=== PATIENT | female | born 1985 | race Caucasian/White ===

== ENCOUNTER 2016-11-20 00:16 | Emergency (ER) | payer OTHER ==
[~2016-11-20] VITALS: Ht 172.7 cm; Wt 104.3 kg
[~2016-11-20 00:16] MED LIST: ONDA4TAB10 SL
[2016-11-20 00:57] LABS: BILIRUBIN,URINE NEGATIVE (NEG); GLUCOSE,URINE NEGATIVE (NEG); NITRITE,URINE NEGATIVE (NEG); PROTEIN,URINE NEGATIVE (NEG-TRACE)
[2016-11-20 01:01] LABS: BACTERIA,URINE FEW /HPF (0-FEW); RBC,URINE TNTC /HPF (0-2); SQUAMOUS EPITHELIAL CELL,UR MOD /LPF
--- NOTE | 2016-11-20 01:05 | PHYS DOC ---
Past Medical History Past Medical History: CHF, High Cholesterol, Hypertension, Kidney Infection, Kidney Stone Additional Past Medical Histor: HPV, RIGHT LUNG LACERATION Past Surgical History: Cholecystectomy, Additional Past Surgical Histo: KIDNEY STENTS , BALLOON STENT Alcohol Use: None Drug Use: Marijuana Social History Narrative: ECSTASY Adult General Chief Complaint Chief Complaint: FLANK PAIN HPI HPI Patient is a 31 year old female who presents with complaint of right-sided flank pain. Patient states her symptoms started yesterday and have progressively worsened. Patient states that she is having hematuria and dysuria. Patient rates her pain as 10 out of 10 currently. Patient has history of kidney stones and states that her symptoms feel similar to previous episodes. Patient denies any fever or vomiting currently. Patient has not taken any medications to help with her symptoms. Patient states that she is having difficulty finding a position of comfort due to her pain. Patient denies any known exacerbating factors. Review of Systems Review of Systems Constitutional: Denies fever or chills [] Eyes: Denies change in visual acuity, redness, or eye pain [] HENT: Denies nasal congestion or sore throat [] Respiratory: Denies cough or shortness of breath [] Cardiovascular: Denies chest pain or edema [] GI: Nausea, denies abdominal pain, vomiting, bloody stools or diarrhea [] : Right flank pain, hematuria, dysuria [] Musculoskeletal: Denies back pain or joint pain [] Integument: Denies rash or skin lesions [] Neurologic: Denies headache, focal weakness or sensory changes [] Current Medications Current Medications Current Medications Medications (Trade) Dose Ordered Sig/Sg Start Time Stop Time Status Last Admin Dose Admin Famotidine (Pepcid) 20 mg 1X ONCE 11/20/16 01:30 11/20/16 01:31 DC 11/20/16 01:26 20 MG Morphine Sulfate 4 mg 4 mg PRN Q15MIN PRN 11/20/16 01:30 11/21/16 01:29 11/20/16 02:43 4 MG Ondansetron HCl (Zofran) 4 mg 1X ONCE 11/20/16 01:30 11/20/16 01:31 DC 11/20/16 01:27 4 MG Sodium Chloride (Iv Sodium Chloride 0.9% 1000ml Bag) 1,000 ml @ 1,000 mls/hr Q1H 11/20/16 01:30 11/20/16 02:29 DC 11/20/16 01:27 1,000 MLS/HR Allergies Allergies Allergies Coded Allergies Type Severity Reaction Last Updated Verified Sulfa (Sulfonamide Antibiotics) Allergy Severe Anaphylaxis 03/09/16 Yes Physical Exam Physical Exam Constitutional: Alert, afebrile, appears in moderate to severe discomfort. [] HENT: Normocephalic, atraumatic, bilateral external ears normal, oropharynx moist, no oral exudates, nose normal. [] Eyes: PERRLA, EOMI, conjunctiva normal, no discharge. [] Neck: Normal range of motion, no tenderness, supple, no stridor. [] Cardiovascular:Heart rate regular rhythm, no murmur [] Lungs & Thorax: Bilateral breath sounds clear to auscultation [] Abdomen: Bowel sounds normal, soft, no tenderness, no masses, no pulsatile masses. [] Skin: Warm, dry, no erythema, no rash. [] Back: No midline tenderness, right CVA tenderness present, no flank ecchymosis. [] Extremities: No tenderness, no cyanosis, no clubbing, ROM intact, no edema. [] Neurologic: Alert and oriented X 3, normal motor function, normal sensory function, no focal deficits noted. [] Current Patient Data Vital Signs Vital Signs Date Time Temp Pulse Resp B/P Pulse Ox O2 Delivery O2 Flow Rate FiO2 11/20/16 01:31 81 145/82 100 Room Air 11/20/16 00:55 98.1 16 98.1 Lab Values Laboratory Tests Test 11/20/16 00:40 11/20/16 00:50 Urine Collection Type Unknown Urine Color Yellow Urine Clarity Clear Urine pH 7.0 Urine Specific [place] 1.015 Urine Protein Negativemg/dL (NEG-TRACE) Urine Glucose (UA) Negativemg/dL (NEG) Urine Ketones (Stick) Tracemg/dL (NEG) Urine Blood Large (NEG) Urine Nitrite Negative (NEG) Urine Bilirubin Negative (NEG) Urine Urobilinogen Dipstick 1.0mg/dL (0.2 mg/dL) Urine Leukocyte Esterase Negative (NEG) Urine RBC Tntc/HPF (0-2) Urine WBC 1-4/HPF (0-4) Urine Squamous Epithelial Cells Mod/LPF Urine Bacteria Few/HPF (0-FEW) Urine Mucus Mod/LPF Urine Test Negative (NEG) White Blood Count 8.1x10^3/uL (4.0-11.0) Red Blood Count 4.10x10^6/uL (3.50-5.40) Hemoglobin 13.6g/dL (12.0-15.5) Hematocrit 40.4% (36.0-47.0) Mean Corpuscular Volume 99fL (79-100) Mean Corpuscular Hemoglobin 33pg (25-35) Mean Corpuscular Hemoglobin Concent 34g/dL (31-37) Red Cell Distribution Width 12.7% (11.5-14.5) Platelet Count 254x10^3/uL (140-400) Neutrophils (%) (Auto) 51% (31-73) Lymphocytes (%) (Auto) 39% (24-48) Monocytes (%) (Auto) 8% (0-9) Eosinophils (%) (Auto) 1% (0-3) Basophils (%) (Auto) 1% (0-3) Neutrophils # (Auto) 4.1x10^3uL (1.8-7.7) Lymphocytes # (Auto) 3.2x10^3/uL (1.0-4.8) Monocytes # (Auto) 0.7x10^3/uL (0.0-1.1) Eosinophils # (Auto) 0.1x10^3/uL (0.0-0.7) Basophils # (Auto) 0.1x10^3/uL (0.0-0.2) Sodium Level 142mmol/L (136-145) Potassium Level 3.3mmol/L (3.5-5.1) L Chloride Level 105mmol/L (98-107) Carbon Dioxide Level 26mmol/L (21-32) Anion Gap 11 (6-14) Blood Urea Nitrogen 6mg/dL (7-20) L Creatinine 0.6mg/dL (0.6-1.0) Estimated GFR (Cockcroft-Gault) 115.1 BUN/Creatinine Ratio 10 (6-20) Glucose Level 117mg/dL (70-99) H Calcium Level 8.7mg/dL (8.5-10.1) Total Bilirubin 0.4mg/dL (0.2-1.0) Aspartate Amino Transferase (AST) 22U/L (15-37) Alanine Aminotransferase (ALT) 41U/L (14-59) Alkaline Phosphatase 69U/L (46-116) Total Protein 7.0g/dL (6.4-8.2) Albumin 3.9g/dL (3.4-5.0) Albumin/Globulin Ratio 1.3 (1.0-1.7) Lipase 109U/L (73-393) Laboratory Tests 11/20/16 00:50 Laboratory Tests 11/20/16 00:50 EKG EKG Not performed [] Radiology/Procedures Radiology/Procedures [facility] [address] [place] [address] IMAGING REPORT Signed PATIENT: LU BRANHAM ACCOUNT: [id number] : 1985 LOCATION: ER AGE: 31 SEX: F EXAM STATUS: REG ER ORD. PHYSICIAN: JOSÉ MIGUEL GONZALEZ APRN REASON: flank pain hx of kidney stones PROCEDURE: ABDOMEN PELVIS WO CONTRAST Examination: CT of the abdomen pelvis without contrast History: History of right-sided flank pain, hematuria. COMPARISON None available. TECHNIQUE Axial CT images of the abdomen pelvis were performed without contrast. Coronal sagittal reformats were performed. Exposure: One or more of the following dose reduction technique were utilized for this examination: 1. Automated exposure control. 2.Adjustment of MA and /or KV according to patient size. 3. Use of iterative reconstruction technique. Findings: Minimal bibasilar lung atelectasis identified. No evidence of free air identified in the abdomen. The evaluation of the solid organs is limited due to lack of IV contrast. The evaluation of the bowel is limited due to lack of oral contrast. The visualized non contrasted liver, spleen, adrenals grossly appears unremarkable. Cholecystectomy clips are identified. The stomach is mildly distended. The visualized pancreas grossly appears unremarkable .The small bowel is nondilated. No evidence of inflammatory fat stranding identified in the right lower quadrant of the abdomen. Feces and gas noted in the colon. The urinary bladder is mildly distended. Multiple punctate intrarenal collecting system calculi identified in the right and left kidneys with the largest measuring 6.5 millimeters in the right kidney and 5 millimeters in the left kidney. There is a 4.5 millimeter calculus identified in the left ureterovesical junction causing mild left-sided hydronephrosis and hydroureter with minimal fat stranding about the left ureter. The urinary bladder is mildly distended . The visualized uterus, adnexa grossly appears unremarkable . The caliber of the aorta grossly appears unremarkable . Mild degenerative changes lumbar spine. IMPRESSION - 4.5 millimeter calculus identified in the at the left ureterovesical junction causing mild left-sided hydronephrosis and hydroureter. There is minimal fat stranding identified about the left ureter could be secondary to to back pressure or pyelitis. - Multiple intrarenal collecting system calculi identified in the bilateral kidneys. Electronically signed by: Gabriel Acosta (Nov 20, 2016 02:57:30) DICTATED and SIGNED BY: GABRIEL ACOSTA MD DATE: 11/20/16 025 CC: RUDY ROMEO MD; JOSÉ MIGUEL GONZALEZ APRN; UNKNOWN PCP NAME ~ [] Course & Med Decision Making Course & Med Decision Making Pertinent Labs and Imaging studies reviewed. (See chart for details) Patient was given IV fluids, morphine, and Zofran. On reevaluation, patient's symptoms have improved at this time. Patient was found to have a 4-1/2 mm stone at the left UVJ. The patient will be discharged home with referral to Dr. Lobo in one week. Patient provided with hydrocodone, Zofran, and Flomax for treatment. Advised return emergency department for any worsening symptoms. Patient voiced understanding and in agreement with treatment plan. Dragon Disclaimer Dragon Disclaimer This electronic medical record was generated, in whole or in part, using a voice recognition dictation system. Departure Departure Impression: Primary Impression: Left ureteral stone Disposition: 01 HOME, SELF-CARE Condition: IMPROVED Referrals: UNKNOWN PCP NAME (PCP) AMARI LOBO DO Patient Instructions: Ureteral Colic Additional Instructions: Follow-up Dr. Lobo in 5-7 days. Return to the emergency department for any worsening symptoms. Scripts Tamsulosin Hcl (Flomax)0.4 Mg Cap.er.24h1 Cap PO DAILY #15 CAP Ref 0 Prov:RUDY ROMEO MD 11/20/16 Ondansetron (Zofran Odt)4 Mg Tab.rapdis1 Tab SL Q8HRS PRN NAUSEA/VOMITING #15 TAB Prov:RUDY ROMEO MD 11/20/16 Hydrocodone/Apap 5-325 ([place] 5-325 Tablet)1 Each Tablet1-2 Tab PO Q4-6HRS PRN PAIN #30 TAB Prov:RUDY ROMEO MD 11/20/16 RUDY ROMEO MD Nov 20, 2016 01:05
[2016-11-20 01:12] LABS: BASO # 0.1 x10^3/uL (0.0-0.2); BASO % 1 % (0-3); EOS % 1 % (0-3); HEMATOCRIT 40.4 % (36.0-47.0); HEMOGLOBIN 13.6 g/dL (12.0-15.5); LYMPH # 3.2 x10^3/uL (1.0-4.8); LYMPH % 39 % (24-48); MEAN CORPUSCULAR HEMOGLOBIN 33 pg (25-35); MEAN CORPUSCULAR HGB CONC 34 g/dL (31-37); MEAN CORPUSCULAR VOLUME 99 fL (79-100); MONO % 8 % (0-9); NEUT % 51 % (31-73); PLATELET COUNT 254 x10^3/uL (140-400); RED CELL DISTRIBUTION WIDTH 12.7 % (11.5-14.5); WHITE BLOOD COUNT 8.1 x10^3/uL (4.0-11.0)
[2016-11-20 01:20] LABS: CALCIUM 8.7 mg/dL (8.5-10.1); CREATININE 0.6 mg/dL (0.6-1.0); GFR 115.1; POTASSIUM 3.3 mmol/L (3.5-5.1)
[2016-11-20 01:26] LABS: ALBUMIN 3.9 g/dL (3.4-5.0); ALBUMIN/GLOBULIN RATIO 1.3 (1.0-1.7); TOTAL BILIRUBIN 0.4 mg/dL (0.2-1.0)
[2016-11-20] MEDS: MORPHINE SULFATE 4 MG/ML DISP.SYRIN. IV/SQ PRN ×3 (01:27→02:43)
[2016-11-20] MEDS ORDERED: FAMOTIDINE 20 MG/2 ML VIAL IVP ONE (01:30)
[2016-11-20] MEDS ORDERED: IV NORMAL SALINE 1000ML BAG 1,000 ML IV SCH (01:30)
[2016-11-20] MEDS ORDERED: ONDANSETRON PF 4 MG/2 ML VIAL. IV ONE (01:30)
[2016-11-20 02:18] LABS: NEG OBC UR NEG; POS OBC UR POS
--- NOTE | 2016-11-20 02:58 | RAD ---
Examination: CT of the abdomen pelvis without contrast History: History of right-sided flank pain, hematuria. COMPARISON None available. TECHNIQUE Axial CT images of the abdomen pelvis were performed without contrast. Coronal sagittal reformats were performed. Exposure: One or more of the following dose reduction technique were utilized for this examination: 1. Automated exposure control. 2.Adjustment of MA and /or KV according to patient size. 3. Use of iterative reconstruction technique. Findings: Minimal bibasilar lung atelectasis identified. No evidence of free air identified in the abdomen. The evaluation of the solid organs is limited due to lack of IV contrast. The evaluation of the bowel is limited due to lack of oral contrast. The visualized non contrasted liver, spleen, adrenals grossly appears unremarkable. Cholecystectomy clips are identified. The stomach is mildly distended. The visualized pancreas grossly appears unremarkable .The small bowel is nondilated. No evidence of inflammatory fat stranding identified in the right lower quadrant of the abdomen. Feces and gas noted in the colon. The urinary bladder is mildly distended. Multiple punctate intrarenal collecting system calculi identified in the right and left kidneys with the largest measuring 6.5 millimeters in the right kidney and 5 millimeters in the left kidney. There is a 4.5 millimeter calculus identified in the left ureterovesical junction causing mild left-sided hydronephrosis and hydroureter with minimal fat stranding about the left ureter. The urinary bladder is mildly distended . The visualized uterus, adnexa grossly appears unremarkable . The caliber of the aorta grossly appears unremarkable . Mild degenerative changes lumbar spine. IMPRESSION - 4.5 millimeter calculus identified in the at the left ureterovesical junction causing mild left-sided hydronephrosis and hydroureter. There is minimal fat stranding identified about the left ureter could be secondary to to back pressure or pyelitis. - Multiple intrarenal collecting system calculi identified in the bilateral kidneys. Electronically signed by: Gabriel Acosta (Nov 20, 2016 02:57:30)
[2016-11-20 03:00] VITALS: BP 129/69
[2016-11-20] MEDS ORDERED: HYDR-971 PO (03:19)
[2016-11-20] MEDS ORDERED: TAMS0.4C97 PO (03:19)
[2016-11-20] MEDS ORDERED: ONDA4TAB10 SL (03:19)
== END 2016-11-20 03:31 | disposition home or self-care (01) ==
LOC: ER 00:16
DX: N20.1 Calculus of ureter (principal); I11.0 Hypertensive heart disease with heart failure; I50.9 Heart failure, unspecified; E78.00 Pure hypercholesterolemia, unspecified; F12.10 Cannabis abuse, uncomplicated; Z88.2 Allergy status to sulfonamides; Z96.0 Presence of urogenital implants
CPT/HCPCS: 36415; 74176; 80053; 81001; 81025; 83690; 85027; 96361; 96374; 96375; 96376; 99285; J2270; J2405; J7030; S0028

== ENCOUNTER 2016-12-12 02:16 | Emergency (ER) | payer OTHER ==
[~2016-12-12] VITALS: Ht 170.2 cm; Wt 99.8 kg
[~2016-12-12 02:16] MED LIST changes: +HYDR-971 PO; +TAMS0.4C97 PO
--- NOTE | 2016-12-12 03:29 | PHYS DOC ---
Past Medical History Past Medical History: CHF, High Cholesterol, Hypertension, Kidney Infection, Kidney Stone Additional Past Medical Histor: HPV, RIGHT LUNG LACERATION Past Surgical History: Cholecystectomy, Additional Past Surgical Histo: KIDNEY STENTS , BALLOON STENT Alcohol Use: None Drug Use: Marijuana Adult General Chief Complaint Chief Complaint: FLANK PAIN HPI HPI Patient is a 31 year old female who presents with complaint of left-sided flank pain. Patient states her symptoms started up earlier this morning and have persistently worsened. The patient was recently seen in the emergency department on November 20, 2016 and diagnosed with a left distal ureteral stone. Patient states that she followed up with urology and had lithotripsy done. Patient states that she noticed the stone passed approximately 3 days ago and states that she initially felt better, however over the past day she started feeling worsening colicky pain along the left side. Patient rates her pain as 10 out of 10. Patient has had associated nausea but no vomiting. Patient denies fevers. Patient has not taken any medications to help with symptoms. Review of Systems Review of Systems Constitutional: Denies fever or chills [] Eyes: Denies change in visual acuity, redness, or eye pain [] HENT: Denies nasal congestion or sore throat [] Respiratory: Denies cough or shortness of breath [] Cardiovascular: Denies chest pain or edema [] GI: Nausea, denies abdominal pain, vomiting, bloody stools or diarrhea [] : Left flank pain, denies dysuria or hematuria [] Musculoskeletal: Denies back pain or joint pain [] Integument: Denies rash or skin lesions [] Neurologic: Denies headache, focal weakness or sensory changes [] Current Medications Current Medications Current Medications Medications (Trade) Dose Ordered Sig/Sg Start Time Stop Time Status Last Admin Dose Admin Ketorolac Tromethamine (Toradol) 30 mg 1X ONCE 12/12/16 04:00 12/12/16 04:01 DC 12/12/16 03:41 30 MG Morphine Sulfate 4 mg 4 mg PRN Q15MIN PRN 12/12/16 03:30 12/13/16 03:29 12/12/16 04:47 4 MG Ondansetron HCl (Zofran) 4 mg 1X ONCE 12/12/16 04:00 12/12/16 04:01 DC 12/12/16 03:41 4 MG Sodium Chloride (Iv Sodium Chloride 0.9% 1000ml Bag) 1,000 ml @ 1,000 mls/hr Q1H 12/12/16 04:00 12/12/16 04:59 DC 12/12/16 03:37 1,000 MLS/HR Allergies Allergies Allergies Coded Allergies Type Severity Reaction Last Updated Verified Sulfa (Sulfonamide Antibiotics) Allergy Severe Anaphylaxis 03/09/16 Yes Physical Exam Physical Exam Constitutional: Alert, afebrile, appears in moderate discomfort. [] HENT: Normocephalic, atraumatic, bilateral external ears normal, oropharynx moist, no oral exudates, nose normal. [] Eyes: PERRLA, EOMI, conjunctiva normal, no discharge. [] Neck: Normal range of motion, no tenderness, supple, no stridor. [] Cardiovascular:Heart rate regular rhythm, no murmur [] Lungs & Thorax: Bilateral breath sounds clear to auscultation [] Abdomen: Bowel sounds normal, soft, no tenderness, no masses, no pulsatile masses. [] Skin: Warm, dry, no erythema, no rash. [] Back: No tenderness, no CVA tenderness. [] Extremities: No tenderness, no cyanosis, no clubbing, ROM intact, no edema. [] Neurologic: Alert and oriented X 3, normal motor function, normal sensory function, no focal deficits noted. [] Current Patient Data Vital Signs Vital Signs Date Time Temp Pulse Resp B/P Pulse Ox O2 Delivery O2 Flow Rate FiO2 12/12/16 04:47 16 Room Air 12/12/16 02:34 98.3 113 148/84 96 98.3 Lab Values Laboratory Tests Test 12/12/16 01:42 12/12/16 02:20 12/12/16 02:33 POC Urine HCG, Qualitative Hcg negative (Negative) Urine Collection Type Unknown Urine Color Yellow Urine Clarity Clear Urine pH 6.0 Urine Specific [place] 1.020 Urine Protein Negativemg/dL (NEG-TRACE) Urine Glucose (UA) Negativemg/dL (NEG) Urine Ketones (Stick) Negativemg/dL (NEG) Urine Blood Negative (NEG) Urine Nitrite Negative (NEG) Urine Bilirubin Negative (NEG) Urine Urobilinogen Dipstick 0.2mg/dL (0.2 mg/dL) Urine Leukocyte Esterase Small (NEG) Urine RBC Occ/HPF (0-2) Urine WBC 11-20/HPF (0-4) Urine Squamous Epithelial Cells Few/LPF Urine Bacteria Few/HPF (0-FEW) Urine Mucus Mod/LPF White Blood Count 10.5x10^3/uL (4.0-11.0) Red Blood Count 4.23x10^6/uL (3.50-5.40) Hemoglobin 14.0g/dL (12.0-15.5) Hematocrit 41.9% (36.0-47.0) Mean Corpuscular Volume 99fL (79-100) Mean Corpuscular Hemoglobin 33pg (25-35) Mean Corpuscular Hemoglobin Concent 33g/dL (31-37) Red Cell Distribution Width 12.7% (11.5-14.5) Platelet Count 292x10^3/uL (140-400) Neutrophils (%) (Auto) 57% (31-73) Lymphocytes (%) (Auto) 34% (24-48) Monocytes (%) (Auto) 7% (0-9) Eosinophils (%) (Auto) 2% (0-3) Basophils (%) (Auto) 1% (0-3) Neutrophils # (Auto) 6.0x10^3uL (1.8-7.7) Lymphocytes # (Auto) 3.6x10^3/uL (1.0-4.8) Monocytes # (Auto) 0.7x10^3/uL (0.0-1.1) Eosinophils # (Auto) 0.2x10^3/uL (0.0-0.7) Basophils # (Auto) 0.0x10^3/uL (0.0-0.2) Sodium Level 140mmol/L (136-145) Potassium Level 4.8mmol/L (3.5-5.1) Chloride Level 105mmol/L (98-107) Carbon Dioxide Level 24mmol/L (21-32) Anion Gap 11 (6-14) Blood Urea Nitrogen 13mg/dL (7-20) Creatinine 0.6mg/dL (0.6-1.0) Estimated GFR (Cockcroft-Gault) 115.1 Glucose Level 107mg/dL (70-99) H Calcium Level 9.0mg/dL (8.5-10.1) Laboratory Tests 12/12/16 02:33 Laboratory Tests 12/12/16 02:33 EKG EKG Not performed [] Radiology/Procedures Radiology/Procedures [facility] [address] [address] IMAGING REPORT Signed PATIENT: LU BRANHAM ACCOUNT: [id number] : 1985 LOCATION: ER AGE: 31 SEX: F EXAM STATUS: REG ER ORD. PHYSICIAN: RUDY ROMEO MD REASON: left flank pain, history kidney stones PROCEDURE: RENAL COMPLETE LEFT Ultrasound renal left Indication: Left flank pain. The left kidney measures 13.4 x 5.5 x 5.4 centimeters. The cortical thickness and echogenicity is normal. There are small echogenic foci within the left kidney suggestive of nonobstructing calculi. The renal pelvis is mildly prominent but no hydronephrosis is seen. The ureter is not well visualized. The bladder is decompressed. Impression: Nonobstructing left renal calculi. No significant hydronephrosis is seen. There is mild pelviectasis. Electronically signed by: Power Leon MD (Dec 12, 2016 04:18:36) DICTATED and SIGNED BY: POWER LEON MD DATE: 12/12/16417 CC: RUDY ROMEO MD; UNKNOWN PCP NAME ~ [] Course & Med Decision Making Course & Med Decision Making Pertinent Labs and Imaging studies reviewed. (See chart for details) Patient given morphine, Zofran, and Toradol in the emergency department. On reevaluation, patient's symptoms have improved. Patient's ultrasound does not show any signs of hydronephrosis and patient's UA shows findings consistent with possible urinary tract infection. The patient will be discharged with prescriptions for Keflex, [place], Flomax, and Zofran for treatment of patient's flank pain. This may be due to possible retained stone versus a calculus ureteral colic. Advise follow-up with patient's urologist in the next 3-5 days and return to emergency department for any worsening symptoms. Patient voiced understanding and in agreement with treatment plan. Dragon Disclaimer Dragon Disclaimer This electronic medical record was generated, in whole or in part, using a voice recognition dictation system. Departure Departure Impression: Primary Impression: Left flank pain Disposition: 01 HOME, SELF-CARE Condition: IMPROVED Referrals: UNKNOWN PCP NAME (PCP) Patient Instructions: Flank Pain Additional Instructions: Follow-up with your urologist in the next 3-5 days. Return to the emergency department for any worsening symptoms. Scripts Ondansetron (Zofran Odt)4 Mg Tab.rapdis1 Tab SL Q8HRS PRN NAUSEA/VOMITING #15 TAB Prov:RUDY ROMEO MD 12/12/16 Tamsulosin Hcl (Flomax)0.4 Mg Cap.er.24h1 Cap PO DAILY #15 CAP Ref 0 Prov:RUDY ROMEO MD 12/12/16 Hydrocodone/Apap 5-325 ([place] 5-325 Tablet)1 Each Tablet1-2 Tab PO Q4-6HRS PRN PAIN #20 TAB Prov:RUDY ROMEO MD 12/12/16 Cephalexin (Keflex)500 Mg Capsule1 Cap PO BID #14 CAP Prov:RUDY ROMEO MD 12/12/16 RUDY ROMEO MD Dec 12, 2016 03:29
[2016-12-12] MEDS: MORPHINE SULFATE 4 MG/ML DISP.SYRIN. IV/SQ PRN ×3 (03:41→05:23)
[2016-12-12] MEDS ORDERED: IV NORMAL SALINE 1000ML BAG 1,000 ML IV SCH (04:00)
[2016-12-12] MEDS ORDERED: ONDANSETRON PF 4 MG/2 ML VIAL. IV ONE (04:00)
[2016-12-12] MEDS ORDERED: KETOROLAC TROMETHAMINE 30 MG/ML INJ. IV ONE (04:00)
--- NOTE | 2016-12-12 04:19 | RAD ---
Ultrasound renal left Indication: Left flank pain. The left kidney measures 13.4 x 5.5 x 5.4 centimeters. The cortical thickness and echogenicity is normal. There are small echogenic foci within the left kidney suggestive of nonobstructing calculi. The renal pelvis is mildly prominent but no hydronephrosis is seen. The ureter is not well visualized. The bladder is decompressed. Impression: Nonobstructing left renal calculi. No significant hydronephrosis is seen. There is mild pelviectasis. Electronically signed by: Power Kincaid MD (Dec 12, 2016 04:18:36)
[2016-12-12 04:23] LABS: BASO % 1 % (0-3); EOS % 2 % (0-3); HEMATOCRIT 41.9 % (36.0-47.0); LYMPH # 3.6 x10^3/uL (1.0-4.8); LYMPH % 34 % (24-48); MEAN CORPUSCULAR HEMOGLOBIN 33 pg (25-35); MEAN CORPUSCULAR HGB CONC 33 g/dL (31-37); MEAN CORPUSCULAR VOLUME 99 fL (79-100); MONO % 7 % (0-9); NEUT % 57 % (31-73); PLATELET COUNT 292 x10^3/uL (140-400); RED BLOOD COUNT 4.23 x10^6/uL (3.50-5.40); RED CELL DISTRIBUTION WIDTH 12.7 % (11.5-14.5); WHITE BLOOD COUNT 10.5 x10^3/uL (4.0-11.0)
[2016-12-12 04:24] LABS: BILIRUBIN,URINE NEGATIVE (NEG); GLUCOSE,URINE NEGATIVE (NEG); NITRITE,URINE NEGATIVE (NEG); PROTEIN,URINE NEGATIVE (NEG-TRACE); UROBILINOGEN,URINE 0.2 mg/dL (0.2 mg/dL)
[2016-12-12 04:34] LABS: CREATININE 0.6 mg/dL (0.6-1.0); GFR 115.1; POTASSIUM 4.8 mmol/L (3.5-5.1)
[2016-12-12 04:36] LABS: BACTERIA,URINE FEW /HPF (0-FEW); RBC,URINE OCC /HPF (0-2); SQUAMOUS EPITHELIAL CELL,UR FEW /LPF
[2016-12-12] MEDS ORDERED: TAMS0.4C97 PO (05:26)
[2016-12-12] MEDS ORDERED: ONDA4TAB10 SL (05:26)
[2016-12-12] MEDS ORDERED: HYDR-971 PO (05:26)
[2016-12-12] MEDS ORDERED: CEPH-264 PO (05:26)
[2016-12-12 05:27] VITALS: BP 127/79
== END 2016-12-12 05:36 | disposition home or self-care (01) ==
LOC: ER 02:17
DX: R10.9 Unspecified abdominal pain (principal); R11.0 Nausea; I11.0 Hypertensive heart disease with heart failure; I50.9 Heart failure, unspecified; F12.10 Cannabis abuse, uncomplicated; E78.00 Pure hypercholesterolemia, unspecified; Z87.442 Personal history of urinary calculi; Z88.2 Allergy status to sulfonamides
CPT/HCPCS: 36415; 76775; 80048; 81001; 81025; 85027; 87086; 96361; 96374; 96375; 96376; 99285; J1885; J2270; J2405; J7030

== ENCOUNTER 2017-05-27 19:58 | Emergency (ER) | payer OTHER ==
[~2017-05-27] VITALS: Ht 172.7 cm; Wt 70.8 kg
[~2017-05-27 19:58] MED LIST changes: +CEPH-264 PO
[2017-05-27 20:15] VITALS: BP 127/60
[2017-05-27] MEDS ORDERED: DICL50TA4 PO (20:52)
--- NOTE | 2017-05-27 20:53 | PHYS DOC ---
Past Medical History Past Medical History: Cancer, CHF, High Cholesterol, Hypertension, Kidney Infection, Kidney Stone Additional Past Medical Histor: HPV, RIGHT LUNG LACERATION, CERVICAL CA Past Surgical History: Cholecystectomy, , Tubal ligation Additional Past Surgical Histo: KIDNEY STENTS , BALLOON STENT Alcohol Use: None Drug Use: Marijuana Adult General Chief Complaint Chief Complaint: DENTAL PROBLEM HPI HPI Patient is a 32 year old female with a history of kidney stones, hypertension, who presents today with moderate left upper gum dental pain from a dental fracture she's had for years. Patient states the tooth officially broke today. She states she was just got released from [facility] and just finished clindamycin a couple days ago. Review of Systems Review of Systems Constitutional: Denies fever or chills [] Eyes: Denies change in visual acuity, redness, or eye pain [] HENT: moderate left upper gum dental pain Musculoskeletal: Denies back pain or joint pain [] Integument: Denies rash or skin lesions [] Neurologic: Denies headache, focal weakness or sensory changes [] Allergies Allergies Allergies Coded Allergies Type Severity Reaction Last Updated Verified Sulfa (Sulfonamide Antibiotics) Allergy Severe Anaphylaxis 05/27/17 Yes Physical Exam Physical Exam Constitutional: Well developed, well nourished, no acute distress, non-toxic appearance. [] HENT: Normocephalic, atraumatic, bilateral external ears normal, oropharynx moist, no oral exudates, nose normal. [] Left upper molar appears decayed and broken. Patient is missing multiple teeth. Skin: Warm, dry, no erythema, no rash. [] Back: No tenderness, no CVA tenderness. [] Extremities: No tenderness, no cyanosis, no clubbing, ROM intact, no edema. [] Neurologic: Alert and oriented X 3, normal motor function, normal sensory function, no focal deficits noted. [] Psychologic: Affect normal, judgement normal, mood normal. [] Current Patient Data Vital Signs Vital Signs Date Time Temp Pulse Resp B/P (MAP) Pulse Ox O2 Delivery O2 Flow Rate FiO2 05/27/17 20:15 98.0 115 16 98 Room Air 98.0 EKG EKG [] Radiology/Procedures Radiology/Procedures [] Course & Med Decision Making Course & Med Decision Making Pertinent Labs and Imaging studies reviewed. (See chart for details) Patient is in the ED with chronic dental pain she has dental carries and decay. She just finished clindamycin 2 days ago. She is from the [place] [facility]. Discharged with diclofenac. Instructed her to follow-up with a dentist as soon as she can. Apolinar Disclaimer Apolinar Disclaimer This electronic medical record was generated, in whole or in part, using a voice recognition dictation system. Departure Departure Impression: Primary Impression: Dentalgia Additional Impression: Dental caries Disposition: HOME, SELF-CARE Condition: STABLE Referrals: NO PCP (PCP) follow up with your dentist as soon as you can Patient Instructions: Dental Caries Additional Instructions: You were seen for dental pain from a chronic broken tooth. Take the prescribed medicines as needed for pain. Follow-up with your dentist as soon as you can. Scripts Diclofenac Sodium (DICLOFENAC SODIUM) 50 Mg Tablet.dr 1 TAB PO BID, #20 TAB 0 Refills Prov: JOSÉ MIGUEL GONZALEZ APRN 05/27/17 Problem Qualifiers JOSÉ MIGUEL GONZALEZ APRN May 27, 2017 20:53
== END 2017-05-27 20:54 | disposition home or self-care (01) ==
LOC: ER 19:58
DX: K02.9 Dental caries, unspecified (principal); I11.0 Hypertensive heart disease with heart failure; I50.9 Heart failure, unspecified; E78.5 Hyperlipidemia, unspecified; Z87.442 Personal history of urinary calculi; Z90.49 Acquired absence of other specified parts of digestive tract; Z98.51 Tubal ligation status; Z88.1 Allergy status to other antibiotic agents
CPT/HCPCS: 99283

== ENCOUNTER 2017-05-30 20:56 | Emergency (ER) | payer OTHER ==
[~2017-05-30] VITALS: Ht 172.7 cm; Wt 68.9 kg
[~2017-05-30 20:56] MED LIST changes: +DICL50TA4 PO
[2017-05-30 21:23] LABS: BASO # 0.1 x10^3/uL (0.0-0.2); BASO % 1 % (0-3); EOS % 4 % (0-3); HEMATOCRIT 38.4 % (36.0-47.0); HEMOGLOBIN 13.2 g/dL (12.0-15.5); LYMPH # 3.2 x10^3/uL (1.0-4.8); LYMPH % 35 % (24-48); MEAN CORPUSCULAR HEMOGLOBIN 34 pg (25-35); MEAN CORPUSCULAR HGB CONC 34 g/dL (31-37); MEAN CORPUSCULAR VOLUME 100 fL (79-100); MONO % 8 % (0-9); NEUT % 53 % (31-73); PLATELET COUNT 295 x10^3/uL (140-400); RED BLOOD COUNT 3.84 x10^6/uL (3.50-5.40); RED CELL DISTRIBUTION WIDTH 13.5 % (11.5-14.5); WHITE BLOOD COUNT 9.1 x10^3/uL (4.0-11.0)
[2017-05-30 21:28] LABS: NEG OBC UR NEG; POS OBC UR POS
[2017-05-30 21:38] LABS: CALCIUM 9.1 mg/dL (8.5-10.1); CREATININE 0.6 mg/dL (0.6-1.0); GFR 114.4; POTASSIUM 3.9 mmol/L (3.5-5.1)
[2017-05-30] MEDS ORDERED: ACETAMINOPHEN 500 MG TABLET PO ONE (21:45)
[2017-05-30] MEDS ORDERED: IV NORMAL SALINE 1000ML BAG 1,000 ML IV ONE (21:45)
--- NOTE | 2017-05-30 21:55 | PHYS DOC ---
Past Medical History Past Medical History: Cancer, CHF, High Cholesterol, Hypertension, Kidney Infection, Kidney Stone Additional Past Medical Histor: HPV, RIGHT LUNG LACERATION, CERVICAL CA Past Medical History Hemorrhoids, skin tags at the rectum Past Surgical History: Cholecystectomy, , Tubal ligation Additional Past Surgical Histo: KIDNEY STENTS , BALLOON STENT, cardiac cath Alcohol Use: None Drug Use: Marijuana, Methamphetamine Adult General Chief Complaint Chief Complaint: DIZZY/LIGHT HEADED HPI HPI Patient is a 32 year old female presents with complaint of dizziness and lightheadedness as well as rectal bleeding after using meth. The patient does skin popping she didn't have right upper extremity. Presently patient complains of fall diffuse body aches. Review of Systems Review of Systems Constitutional: Denies fever or chills [] Eyes: Denies change in visual acuity, redness, or eye pain [] HENT: Denies nasal congestion or sore throat [] Respiratory: Denies cough or shortness of breath [] Cardiovascular: No chest pain GI: Denies abdominal pain, nausea, vomiting, or diarrhea . Yes to blood per rectum : Denies dysuria or hematuria [] Musculoskeletal: Denies back pain or joint pain. Yesterday diffuse muscle aches Integument: Denies rash or skin lesions [] Neurologic: Denies headache, focal weakness or sensory changes [] Current Medications Current Medications Current Medications Medications (Trade) Dose Ordered Sig/Sg Start Time Stop Time Status Last Admin Dose Admin Acetaminophen (Tylenol) 500 mg 1X ONCE 05/30/17 21:45 05/30/17 21:46 DC Sodium Chloride 1,000 ml @ 1,000 mls/hr 1X ONCE 05/30/17 21:45 05/30/17 22:44 DC 05/30/17 21:18 1,000 MLS/HR Allergies Allergies Allergies Coded Allergies Type Severity Reaction Last Updated Verified Sulfa (Sulfonamide Antibiotics) Allergy Severe Anaphylaxis 05/27/17 Yes Physical Exam Physical Exam Constitutional: Well developed, well nourished, no acute distress, non-toxic appearance. [] HENT: Normocephalic, atraumatic, bilateral external ears normal, oropharynx dry , no oral exudates, nose normal. [] Eyes: EOMI, conjunctiva normal, no discharge. [] Neck: Normal range of motion, no tenderness, supple, no stridor. No LAD, no meningeal signs no JVD Cardiovascular: Tachycardia, equal pulses, normal perfusion Lungs & Thorax: Bilateral breath sounds clear to auscultation, no tachypnea Abdomen: Bowel sounds normal, soft, no tenderness, no masses, no pulsatile masses. Rectal exam with normal tone, pinkish with brown stool, skin tags present. Skin: Warm, dry, no erythema, no rash. Areas of of injection in the skin in the right upper extremity in the antecubital area and the dorsum of the right hand did not show signs of infection Back: No tenderness, no CVA tenderness. [] Extremities: No tenderness, no cyanosis, no DVT, ROM intact, no edema. [] Neurologic: Alert and oriented X 3, normal motor function, normal sensory function, no focal deficits noted. [] Psychologic: Affect normal, judgement normal, chest. [] Current Patient Data Vital Signs Vital Signs Date Time Temp Pulse Resp B/P (MAP) Pulse Ox O2 Delivery O2 Flow Rate FiO2 05/30/17 22:30 92 18 114/71 (85) 99 Room Air 05/30/17 21:07 97.7 97.7 Lab Values Laboratory Tests Test 05/30/17 20:45 05/30/17 21:10 Urine Test Negative (NEG) White Blood Count 9.1 x10^3/uL (4.0-11.0) Red Blood Count 3.84 x10^6/uL (3.50-5.40) Hemoglobin 13.2 g/dL (12.0-15.5) Hematocrit 38.4 % (36.0-47.0) Mean Corpuscular Volume 100 fL (79-100) Mean Corpuscular Hemoglobin 34 pg (25-35) Mean Corpuscular Hemoglobin Concent 34 g/dL (31-37) Red Cell Distribution Width 13.5 % (11.5-14.5) Platelet Count 295 x10^3/uL (140-400) Neutrophils (%) (Auto) 53 % (31-73) Lymphocytes (%) (Auto) 35 % (24-48) Monocytes (%) (Auto) 8 % (0-9) Eosinophils (%) (Auto) 4 % (0-3) H Basophils (%) (Auto) 1 % (0-3) Neutrophils # (Auto) 4.8 x10^3uL (1.8-7.7) Lymphocytes # (Auto) 3.2 x10^3/uL (1.0-4.8) Monocytes # (Auto) 0.7 x10^3/uL (0.0-1.1) Eosinophils # (Auto) 0.3 x10^3/uL (0.0-0.7) Basophils # (Auto) 0.1 x10^3/uL (0.0-0.2) Sodium Level 144 mmol/L (136-145) Potassium Level 3.9 mmol/L (3.5-5.1) Chloride Level 107 mmol/L (98-107) Carbon Dioxide Level 31 mmol/L (21-32) Anion Gap 6 (6-14) Blood Urea Nitrogen 13 mg/dL (7-20) Creatinine 0.6 mg/dL (0.6-1.0) Estimated GFR (Cockcroft-Gault) 114.4 Glucose Level 84 mg/dL (70-99) Calcium Level 9.1 mg/dL (8.5-10.1) Creatine Kinase 48 U/L (26-192) Troponin I Quantitative < 0.017 ng/mL (0.000-0.055) Laboratory Tests 05/30/17 21:10 Laboratory Tests 05/30/17 21:10 EKG EKG 2107 sinus tachycardia, 109, no STEMI[] Radiology/Procedures Radiology/Procedures [] Course & Med Decision Making Course & Med Decision Making Pertinent Labs and Imaging studies reviewed. (See chart for details) 2330 patient in no distress, patient agrees to follow-up as directed. [] Dragon Disclaimer Dragon Disclaimer This electronic medical record was generated, in whole or in part, using a voice recognition dictation system. Departure Departure Impression: Primary Impression: Drug abuse Additional Impressions: Dehydration Rectal bleeding Disposition: HOME, SELF-CARE Condition: STABLE Referrals: UNKNOWN PCP NAME (PCP) Please follow-up with your doctor for recheck and reevaluation in 2 days (or one of the clinics in the list provided to you), please discuss this ED visit. Have your doctor recheck the rectal exam and discussed the possible need for referral to specialist. Please do not use drugs Patient Instructions: Alcohol and Drug Addiction, Finding Treatment, Dehydration, Adult, Glow-up-Cbld, Drug Abuse, FAQs, Rectal Bleeding, Easy-to- Read Scripts Tramadol Hcl/Acetaminophen (ULTRACET TABLET) 1 Each Tablet 1 TAB PO TID, #7 TAB Prov: Antony MYERS MD 05/30/17 Problem Qualifiers Antony MYERS MD May 30, 2017 21:55
--- NOTE | 2017-05-30 23:26 | RAD ---
Exam performed: CT scan of the abdomen and pelvis without contrast. Clinical Indication: Lower abdominal pain and blood in stool for 2 days. Date of Service: 05/30/2017 . Comparison: None available Technique: Contiguous helical acquisitions are obtained through the abdomen and pelvis without oral or IV contrast. Sagittal and coronal reformatted images are obtained and reviewed. CT abdomen findings: The lung bases are essentially clear. The visualized heart is normal. Lack of IV contrast limits evaluation of abdominal viscera, however the liver, spleen, pancreas appear normal. Cholecystectomy Both adrenal glands and bilateral kidneys are normal in size. Nonobstructing bilateral renal calculi are identified. There is no hydronephrosis or perinephric stranding. Aorta is normal in caliber. No retroperitoneal or mesenteric lymphadenopathy. Small and large bowel loops are nondilated and unremarkable. CT pelvis findings: The pelvic bowel loops are nondilated and unremarkable. The urinary bladder is partially decompressed. The uterus is normal. No adnexal masses. No fluid collections or pelvic lymphadenopathy. Bones are unremarkable. Impression: Nonobstructing bilateral renal calculi. No acute abnormality noted. PQRS Compliance Statement: One or more of the following individualized dose reduction techniques were utilized for this examination: 1. Automated exposure control 2. Adjustment of the mA and/or kV according to patient size 3. Use of iterative reconstruction technique Electronically signed by: Savannah Matson MD (05/30/2017 11:23 PM) [facility]
[2017-05-30] MEDS ORDERED: TRAM1TAB56 PO (23:34)
[2017-05-31] VITALS: BP 114/69
--- NOTE | 2017-05-31 06:29 | EKG ---
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
== END 2017-05-31 00:20 | disposition home or self-care (01) ==
LOC: ER 20:56
DX: F19.10 Other psychoactive substance abuse, uncomplicated (principal); K62.5 Hemorrhage of anus and rectum; E86.0 Dehydration; I11.0 Hypertensive heart disease with heart failure; I50.9 Heart failure, unspecified; E78.00 Pure hypercholesterolemia, unspecified; Z90.49 Acquired absence of other specified parts of digestive tract; Z98.51 Tubal ligation status
CPT/HCPCS: 36415; 74176; 80048; 81025; 82550; 84484; 85025; 93005; 96360; 96361; 99285; J7030

== ENCOUNTER 2017-07-14 13:45 | Emergency (ER) | payer OTHER ==
[~2017-07-14] VITALS: Ht 170.2 cm; Wt 68.9 kg
[~2017-07-14 13:45] MED LIST changes: +TRAM1TAB56 PO
[2017-07-14 15:27] LABS: BASO % 1 % (0-3); EOS % 3 % (0-3); HEMATOCRIT 40.2 % (36.0-47.0); HEMOGLOBIN 13.6 g/dL (12.0-15.5); LYMPH # 2.4 x10^3/uL (1.0-4.8); LYMPH % 31 % (24-48); MEAN CORPUSCULAR HEMOGLOBIN 34 pg (25-35); MEAN CORPUSCULAR HGB CONC 34 g/dL (31-37); MEAN CORPUSCULAR VOLUME 100 fL (79-100); MONO % 6 % (0-9); NEUT % 60 % (31-73); PLATELET COUNT 297 x10^3/uL (140-400); RED BLOOD COUNT 4.03 x10^6/uL (3.50-5.40); WHITE BLOOD COUNT 7.8 x10^3/uL (4.0-11.0)
[2017-07-14 15:30] LABS: BILIRUBIN,URINE NEGATIVE (NEG); GLUCOSE,URINE NEGATIVE (NEG); NITRITE,URINE NEGATIVE (NEG); PH,URINE 6.5; PROTEIN,URINE NEGATIVE (NEG-TRACE); UROBILINOGEN,URINE 0.2 mg/dL (0.2 mg/dL)
[2017-07-14] MEDS ORDERED: IV NORMAL SALINE 1000ML BAG 1,000 ML IV ONE (15:30)
[2017-07-14 15:37] LABS: BACTERIA,URINE MANY /HPF (0-FEW); SQUAMOUS EPITHELIAL CELL,UR MANY /LPF
[2017-07-14 15:38] LABS: CALCIUM 8.7 mg/dL (8.5-10.1); CREATININE 0.6 mg/dL (0.6-1.0); GFR 114.4; POTASSIUM 3.9 mmol/L (3.5-5.1)
[2017-07-14] MEDS ORDERED: ONDANSETRON PF 4 MG/2 ML VIAL. IV ONE (15:45)
[2017-07-14] MEDS ORDERED: fentaNYL PF VIAL 100 MCG/2 ML VIAL IV ONE (15:45)
[2017-07-14 15:46] LABS: ALBUMIN 3.6 g/dL (3.4-5.0); ALBUMIN/GLOBULIN RATIO 1.2 (1.0-1.7); TOTAL BILIRUBIN 0.2 mg/dL (0.2-1.0); TOTAL PROTEIN 6.5 g/dL (6.4-8.2)
--- NOTE | 2017-07-14 15:52 | PHYS DOC ---
Past Medical History Past Medical History: Cancer, CHF, High Cholesterol, Hypertension, Kidney Infection, Kidney Stone Additional Past Medical Histor: HPV, RIGHT LUNG LACERATION, CERVICAL CA Past Surgical History: Cholecystectomy, , Tubal ligation Additional Past Surgical Histo: KIDNEY STENTS , BALLOON STENT, cardiac cath Alcohol Use: None Drug Use: Marijuana, Methamphetamine Social History Narrative: Ecstasy Adult General Chief Complaint Chief Complaint: ABDOMINAL PAIN HPI HPI Patient is a 32 year old F who presents with left lower quadrant and flank pain. Patient states she is a history of kidney stones and has had this left lower quadrant and flank pain for the past 7 days. Patient states the pains got worse therefore came the emergency room. Patient denies any fevers. Patient does complain of some burning with urination. Patient denies any nausea/vomiting /diarrhea. Patient denies any chest pain or short of breath. Patient is no other complaints. Review of Systems Review of Systems GEN: Denies fevers, chills, sweats HEENT: Denies blurred vision, sore throat CV: Denies chest pain RESP: Denies shortness of air, cough GI: Abdominal pain NEURO: Denies confusion, dizziness MSK: Denies weakness, joint pain/swelling All other systems were reviewed and found to be within normal limits, except as documented in this note. Current Medications Current Medications Current Medications Medications (Trade) Dose Ordered Sig/Sg Start Time Stop Time Status Last Admin Dose Admin Fentanyl Citrate (Fentanyl 2ml Vial) 50 mcg 1X ONCE 07/14/17 15:45 07/14/17 15:46 DC 07/14/17 15:45 50 MCG Ondansetron HCl (Zofran) 4 mg 1X ONCE 07/14/17 15:45 07/14/17 15:46 DC 07/14/17 15:43 4 MG Sodium Chloride 1,000 ml @ 1,000 mls/hr 1X ONCE 07/14/17 15:30 07/14/17 16:29 DC 07/14/17 15:29 1,000 MLS/HR Allergies Allergies Allergies Coded Allergies Type Severity Reaction Last Updated Verified Sulfa (Sulfonamide Antibiotics) Allergy Severe Anaphylaxis 05/27/17 Yes Physical Exam Physical Exam GEN.: mild distress. Alert and oriented. HEENT: Head is normocephalic, atraumatic NECK: Supple. LUNGS: CTAB. HEART: RRR, S1, S2 present. Peripheral pulses intact ABDOMEN: Soft, tenderness to palpation left lower quadrant, no rebound tenderness, no abdominal guarding, no distention. Positive bowel sounds. EXTREMITIES: Without any cyanosis. NEUROLOGIC: Normal speech, normal tone PSYCHIATRIC: Normal affect, normal mood. SKIN: No ulcerations Current Patient Data Vital Signs Vital Signs Date Time Temp Pulse Resp B/P (MAP) Pulse Ox O2 Delivery O2 Flow Rate FiO2 07/14/17 16:00 70 119/73 (88) 97 Room Air 07/14/17 15:45 14 07/14/17 13:55 98.1 98.1 Lab Values Laboratory Tests Test 07/14/17 14:02 07/14/17 14:30 POC Urine HCG, Qualitative Hcg negative (Negative) White Blood Count 7.8 x10^3/uL (4.0-11.0) Red Blood Count 4.03 x10^6/uL (3.50-5.40) Hemoglobin 13.6 g/dL (12.0-15.5) Hematocrit 40.2 % (36.0-47.0) Mean Corpuscular Volume 100 fL (79-100) Mean Corpuscular Hemoglobin 34 pg (25-35) Mean Corpuscular Hemoglobin Concent 34 g/dL (31-37) Red Cell Distribution Width 13.0 % (11.5-14.5) Platelet Count 297 x10^3/uL (140-400) Neutrophils (%) (Auto) 60 % (31-73) Lymphocytes (%) (Auto) 31 % (24-48) Monocytes (%) (Auto) 6 % (0-9) Eosinophils (%) (Auto) 3 % (0-3) Basophils (%) (Auto) 1 % (0-3) Neutrophils # (Auto) 4.6 x10^3uL (1.8-7.7) Lymphocytes # (Auto) 2.4 x10^3/uL (1.0-4.8) Monocytes # (Auto) 0.5 x10^3/uL (0.0-1.1) Eosinophils # (Auto) 0.2 x10^3/uL (0.0-0.7) Basophils # (Auto) 0.0 x10^3/uL (0.0-0.2) Urine Collection Type Unknown Urine Color Yellow Urine Clarity Cloudy Urine pH 6.5 Urine Specific [place] 1.020 Urine Protein Negative mg/dL (NEG-TRACE) Urine Glucose (UA) Negative mg/dL (NEG) Urine Ketones (Stick) Negative mg/dL (NEG) Urine Blood Moderate (NEG) Urine Nitrite Negative (NEG) Urine Bilirubin Negative (NEG) Urine Urobilinogen Dipstick 0.2 mg/dL (0.2 mg/dL) Urine Leukocyte Esterase Small (NEG) Urine RBC 6-10 /HPF (0-2) Urine WBC 1-4 /HPF (0-4) Urine Squamous Epithelial Cells Many /LPF Urine Bacteria Many /HPF (0-FEW) Urine Mucus Mod /LPF Sodium Level 143 mmol/L (136-145) Potassium Level 3.9 mmol/L (3.5-5.1) Chloride Level 106 mmol/L (98-107) Carbon Dioxide Level 30 mmol/L (21-32) Anion Gap 7 (6-14) Blood Urea Nitrogen 12 mg/dL (7-20) Creatinine 0.6 mg/dL (0.6-1.0) Estimated GFR (Cockcroft-Gault) 114.4 BUN/Creatinine Ratio 20 (6-20) Glucose Level 96 mg/dL (70-99) Calcium Level 8.7 mg/dL (8.5-10.1) Total Bilirubin 0.2 mg/dL (0.2-1.0) Aspartate Amino Transferase (AST) 13 U/L (15-37) L Alanine Aminotransferase (ALT) 16 U/L (14-59) Alkaline Phosphatase 68 U/L (46-116) Total Protein 6.5 g/dL (6.4-8.2) Albumin 3.6 g/dL (3.4-5.0) Albumin/Globulin Ratio 1.2 (1.0-1.7) Lipase 122 U/L (73-393) Laboratory Tests 07/14/17 14:30 Laboratory Tests 07/14/17 14:30 EKG EKG [] Radiology/Procedures Radiology/Procedures CT scan abdomen and pelvis without contrast IMPRESSION: 1. Bilateral intrarenal calculi. 2. No obstructing urinary tract calculus is identified.[] Course & Med Decision Making Course & Med Decision Making Pertinent Labs and Imaging studies reviewed. (See chart for details) ED course: Patient was seen and examined emergency room CBC, CMP, UA, CT scan abdomen pelvis without contrast Patient was updated on lab results and CT findings. Patient states she was having some dysuria therefore will prescribe her some antibiotics for UTI despite a non-clean catch of urine MDM: After reviewing the chart, CC/HPI/PMH, physical exam, [lab results], [ radiological results], I do not believe the patient has emergent medical condition warranting further workup and/or admission at this time. I do not believe the patient has a intra-abdominal emergency warranting emergent surgical evaluation. I believe patient is stable for discharge and recommended short-term follow-up with PCP. Recommended [id number] pain medication to treat her symptoms. Additional verbal discharge instructions were provided to the patient and that if symptoms get worse or any new symptoms arise that are worrisome to the patient she is to return to the emergency room immediately [] Dragon Disclaimer Dragon Disclaimer This electronic medical record was generated, in whole or in part, using a voice recognition dictation system. Departure Departure Impression: Primary Impression: Abdominal pain Additional Impression: UTI (urinary tract infection) Disposition: 01 HOME, SELF-CARE Condition: STABLE Referrals: UNKNOWN PCP NAME (PCP) Patient Instructions: Abdominal Pain, Urinary Tract Infection, Child Additional Instructions: Please follow-up with your family physician in the next one to 2 days Scripts Cephalexin (KEFLEX) 500 Mg Capsule 1 CAP PO TID for 5 Days, #15 CAP Prov: RAVI ANNE DO 07/14/17 Problem Qualifiers RAVI ANNE DO Jul 14, 2017 15:52
[2017-07-14 16:00] VITALS: BP 119/73
--- NOTE | 2017-07-14 16:21 | RAD ---
CT of the abdomen and pelvis without contrast, 07/14/2017: History: Left flank pain, history of calculi Noncontrast scans were obtained utilizing the renal stone protocol. Comparison is made to a study from 05/30/2017. This is a limited study for evaluation of the possibility of urinary tract calculi. There are several small radiopacities in both kidneys compatible with calculi. The largest of these on the left lies in the lower pole and measures 5 mm. On the right the largest calculus measures 6 mm. The renal collecting systems and ureters are not dilated. No ureteral calculus is identified. There are several small lower pelvic radiopacities which are unchanged since 05/30/2017 and are compatible with phleboliths. The partially filled urinary bladder is unremarkable. There are several calcifications in the right lobe of the liver. The gallbladder is surgically absent. The pancreas cannot be clearly from unopacified bowel. The spleen is of normal size. The bowel loops are not dilated. No free air or significant free fluid is identified in the abdomen or pelvis. There are mild scattered spurs in the spine. There is a prominent Schmorl's node along superior endplate at L1. IMPRESSION: 1. Bilateral intrarenal calculi. 2. No obstructing urinary tract calculus is identified. PQRS Compliance Statement: One or more of the following individualized dose reduction techniques were utilized for this examination: 1. Automated exposure control 2. Adjustment of the mA and/or kV according to patient size 3. Use of iterative reconstruction technique
[2017-07-14] MEDS ORDERED: CEPH-264 PO (16:41)
== END 2017-07-14 16:39 | disposition home or self-care (01) ==
LOC: ER 13:45
DX: N39.0 Urinary tract infection, site not specified (principal); I11.0 Hypertensive heart disease with heart failure; I50.9 Heart failure, unspecified; E78.00 Pure hypercholesterolemia, unspecified; F12.10 Cannabis abuse, uncomplicated; F15.10 Other stimulant abuse, uncomplicated; Z88.2 Allergy status to sulfonamides; Z87.442 Personal history of urinary calculi; Z90.49 Acquired absence of other specified parts of digestive tract
CPT/HCPCS: 36415; 74176; 80053; 81001; 81025; 83690; 85025; 87086; 96361; 96374; 96375; 99285; J2405; J3010; J7030

== ENCOUNTER 2018-05-08 05:58 | Emergency (ER) | payer SELFPAY ==
[~2018-05-08] VITALS: Ht 167.6 cm; Wt 90.7 kg
[2018-05-08 06:00] VITALS: BP 110/69
[2018-05-08] MEDS ORDERED: IBUP-1060 PO (06:24)
--- NOTE | 2018-05-08 06:24 | PHYS DOC ---
Past Medical History Past Medical History: Cancer, CHF, High Cholesterol, Hypertension, Kidney Infection, Kidney Stone Additional Past Medical Histor: HPV, RIGHT LUNG LACERATION, CERVICAL CA Past Surgical History: Cholecystectomy, , Tubal ligation Additional Past Surgical Histo: KIDNEY STENTS , BALLOON STENT, cardiac cath Alcohol Use: None Drug Use: Marijuana, Methamphetamine Adult General Chief Complaint Chief Complaint: HAND PROBLEM HPI HPI Patient is a 33 year old to the ER today for evaluation of bilateral hands pain that she has been experienced off and on for 6 months. Patient denied any injury. Patient described the pain as cramping sensation. She denied any feeling or hot or cold. Patient does not work. She said she could not sleep tonight due to pain. Patient said it is like nerve pain. Patient denied any fever, no numbness or tingling sensation in her hands or fingers. Review of Systems Review of Systems Constitutional: Denies fever or chills [] Eyes: Denies change in visual acuity, redness, or eye pain [] HENT: Denies nasal congestion or sore throat [] Respiratory: Denies cough or shortness of breath [] Cardiovascular: No additional information not addressed in HPI [] GI: Denies abdominal pain, nausea, vomiting, bloody stools or diarrhea [] : Denies dysuria or hematuria [] Musculoskeletal: POSITIVE FOR HANDS PAIN. Integument: Denies rash or skin lesions [] Neurologic: Denies headache, focal weakness or sensory changes [] Endocrine: Denies polyuria or polydipsia [] All other systems were reviewed and found to be within normal limits, except as documented in this note. Current Medications Current Medications Current Medications Medications (Trade) Dose Ordered Sig/Sg Start Time Stop Time Status Last Admin Dose Admin Ibuprofen (Motrin) 800 mg 1X ONCE 05/08/18 06:45 05/08/18 06:46 DC Ketorolac Tromethamine (Toradol Im) 60 mg 1X ONCE 05/08/18 06:30 05/08/18 06:31 DC Methylprednisolone Sodium Succinate (SOLU-Medrol 125MG VIAL) 125 mg 1X ONCE 05/08/18 06:30 05/08/18 06:31 DC Allergies Allergies Allergies Coded Allergies Type Severity Reaction Last Updated Verified Sulfa (Sulfonamide Antibiotics) Allergy Severe Anaphylaxis 05/27/17 Yes Physical Exam Physical Exam Constitutional: Well developed, well nourished, no acute distress, non-toxic appearance. [] HENT: Normocephalic, atraumatic. Eyes: PERRLA, conjunctiva normal, no discharge. [] Neck: Normal range of motion, no tenderness, supple, no stridor. [] Cardiovascular:Heart rate regular rhythm, no murmur [] Lungs & Thorax: Bilateral breath sounds clear to auscultation [] Abdomen:NOT DONE Skin: Warm, dry, no erythema, no rash. [] Back: NOT DONE. Extremities: No tenderness, no cyanosis, no clubbing, ROM intact, no edema. [] Neurologic: Alert and oriented X 3, normal motor function, normal sensory function, no focal deficits noted. [] Psychologic: Affect normal, judgement normal, mood normal. [] Current Patient Data Vital Signs Vital Signs Date Time Temp Pulse Resp B/P (MAP) Pulse Ox O2 Delivery O2 Flow Rate FiO2 05/08/18 06:00 97.8 87 16 110/69 (83) 99 Room Air 97.8 EKG EKG [] Radiology/Procedures Radiology/Procedures [] Impressions: CHRONIC HANDS PAIN UNKNOWN CAUSE Course & Med Decision Making Course & Med Decision Making Pertinent Labs and Imaging studies reviewed. (See chart for details) Patient has chronic hands pain, unknown cause, need to follow up with pcp for further evaluation and management. Dragon Disclaimer Dragon Disclaimer This electronic medical record was generated, in whole or in part, using a voice recognition dictation system. Departure Departure Impression: Primary Impression: Bilateral hand pain Disposition: 01 HOME, SELF-CARE Condition: STABLE Referrals: UNKNOWN PCP NAME (PCP) follow up with pcp next week for further evaluation Patient Instructions: Chronic Pain Scripts Ibuprofen (IBUPROFEN) 800 Mg Tablet 800 MG PO PRN Q8HRS PRN for INFLAMMATION for 7 Days, #30 TAB Prov: LAUREN HERNANDEZ DO 05/08/18 LAUREN HERNANDEZ DO May 08, 2018 06:24
[2018-05-08] MEDS: methylPREDNISolone SOD SUCC PF 125 MG/2 ML VIAL. IM ONE (06:30)
[2018-05-08] MEDS: KETOROLAC 60 MG/2 ML INJ. IM ONE (06:30)
[2018-05-08] MEDS: IBUPROFEN 800 MG TABLET. PO ONE (06:45)
== END 2018-05-08 06:57 | disposition home or self-care (01) ==
LOC: ER 05:58
DX: M79.641 Pain in right hand (principal); M79.642 Pain in left hand; I11.0 Hypertensive heart disease with heart failure; I50.9 Heart failure, unspecified; E78.00 Pure hypercholesterolemia, unspecified; K21.9 Gastro-esophageal reflux disease without esophagitis; Z90.49 Acquired absence of other specified parts of digestive tract; Z98.890 Other specified postprocedural states; Z98.51 Tubal ligation status; Z88.2 Allergy status to sulfonamides
CPT/HCPCS: 99282

== ENCOUNTER 2018-10-23 05:45 | Emergency (ER) | payer SELFPAY ==
[~2018-10-23] VITALS: Ht 167.6 cm; Wt 94.3 kg
[~2018-10-23 05:45] MED LIST changes: +HYDR-3164 PO; -HYDR-971 PO; +IBUP-1060 PO
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
[2018-10-23] MEDS ORDERED: oxyCODONE/APAP 10/325 1 TAB TABLET PO ONE (06:30)
[2018-10-23] MEDS ORDERED: TRAM50TA PO (07:52)
[2018-10-23 08:00] VITALS: BP 121/73
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
== END 2018-10-23 08:06 | disposition home or self-care (01) ==
LOC: ER 05:45
DX: S20.212A Contusion of left front wall of thorax, initial encounter (principal); R07.89 Other chest pain; E78.00 Pure hypercholesterolemia, unspecified; I11.0 Hypertensive heart disease with heart failure; I50.9 Heart failure, unspecified; Z90.49 Acquired absence of other specified parts of digestive tract; Z98.890 Other specified postprocedural states; Z98.51 Tubal ligation status; Z88.2 Allergy status to sulfonamides; Y08.89XA Assault by other specified means, initial encounter; Y93.89 Activity, other specified; Y92.89 Other specified places as the place of occurrence of the external cause; Y99.8 Other external cause status
CPT/HCPCS: 71046; 99283